=== PATIENT | female | born 2000 | race Caucasian/White ===

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

== ENCOUNTER 2020-10-16 09:29 | Emergency (ER) | payer BC ==
[~2020-10-16] VITALS: Ht 177 cm; Wt 72.7 kg
[2020-10-16] MEDS ORDERED: OXYMETAZOLINE (AFRIN) 0.05% NA 30 ML BTL STA (10:02)
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
[2020-10-16] MEDS ORDERED: cefTRIAXone 1,000 MG in WATER (STERILE) FOR INJECTION 10 ML IV ONE (10:15)
[2020-10-16] MEDS ORDERED: AZITHROMYCIN 250 MG TAB (ZITHROMAX) PO ONE (10:15)
[2020-10-16 10:34] LABS: BILIRUBIN,URINE NEGATIVE (NEGATIVE); CLARITY,URINE CLEAR; COLOR,URINE YELLOW; GLUCOSE, URINE (UA) NEGATIVE (NEGATIVE); KETONES,URINE NEGATIVE (NEGATIVE); LEUKOCYTE ESTERASE ,URINE NEGATIVE (NEGATIVE); NITRITE,URINE NEGATIVE (NEGATIVE); PH,URINE 7.5 (5-9); PROTEIN,URINE NEGATIVE (NEGATIVE)
[2020-10-16 10:34] LABS: BASOPHILS % (AUTO) 0 % (0-10); EOSINOPHILS # (AUTO) 0.1 10^3/uL (0.0-0.3); EOSINOPHILS % (AUTO) 1 % (0-10); HEMATOCRIT 41 % (35-52); HEMOGLOBIN 13.9 g/dL (11.5-16.0); LYMPHOCYTES # (AUTO) 1.8 10^3/uL (1.0-4.0); LYMPHOCYTES % (AUTO) 24 % (12-44); MEAN CORPUSCULAR HEMOGLOBIN 31 pg (25-34); MEAN CORPUSCULAR HGB CONC 34 g/dL (32-36); MEAN CORPUSCULAR VOLUME 90 fL (80-99); MEAN PLATELET VOLUME 9.9 fL (9.0-12.2); MONOCYTES # (AUTO) 0.5 10^3/uL (0.0-1.0); MONOCYTES % (AUTO) 7 % (0-12); NEUTROPHILS # (AUTO) 5.1 10^3/uL (1.8-7.8); NEUTROPHILS % (AUTO) 67 % (42-75); PLATELET COUNT 261 10^3/uL (130-400); WHITE BLOOD COUNT 7.6 10^3/uL (4.3-11.0)
[2020-10-16 10:44] LABS: BACTERIA,URINE NEGATIVE /HPF; SQUAMOUS EPITHELIAL CELL,UR 0-2 /HPF; WBC,URINE RARE /HPF
[2020-10-16 10:46] LABS: ALBUMIN 4.2 GM/DL (3.2-4.5); POTASSIUM 3.7 MMOL/L (3.6-5.0)
[2020-10-16 10:47] LABS: CALCIUM 9.1 MG/DL (8.5-10.1)
[2020-10-16 10:48] LABS: TOTAL PROTEIN 6.5 GM/DL (6.4-8.2)
[2020-10-16 10:50] LABS: BILIRUBIN,TOTAL 1.2 MG/DL (0.1-1.0)
[2020-10-16 10:52] VITALS: BP 120/82
[2020-10-16 10:52] LABS: CREATININE SERUM 0.76 MG/DL (0.60-1.30)
== END 2020-10-16 11:03 | disposition home or self-care (01) ==
LOC: EDUNIT# 09:29 → ER 09:31
DX: R04.0 Epistaxis (principal); Y04.2XXA Assault by strike against or bumped into by another person, initial encounter
CPT/HCPCS: 36415; 80053; 81000; 84703; 85025; 86780; 87491; 87591; 99283

== ENCOUNTER → 2021-06-27 | Outpatient (CLI) | payer BC ==
--- NOTE | 2021-06-27 12:13 | Diagnostic Imaging Report ---
INDICATION: Concern for demise. FINDINGS: There is a single live IUP measuring 7 weeks 2 days gestational age. Heart rate was recorded at 140 BPM. No perigestational sac hemorrhage is detected. Adnexa are unremarkable. IMPRESSION: Single live IUP of 7 weeks 2 days gestational age. Estimated date of confinement sonographically is 02/12/2022. Dictated by: Dictated on workstation # [id number]
== END ==
LOC: RAD 11:30
PROVIDERS: ATTEND Nurse Practitioner Family
DX: O20.9 Hemorrhage in early pregnancy, unspecified (principal); Z3A.01 Less than 8 weeks gestation of pregnancy
CPT/HCPCS: 76801; 76817

== ENCOUNTER → 2021-06-30 | Outpatient (CLI) | payer BC ==
[~2021-06-30] MED LIST: DOXY1TAB3 PO
[2021-06-30 14:56] LABS: BILIRUBIN,URINE NEGATIVE (NEGATIVE); CLARITY,URINE CLEAR; COLOR,URINE YELLOW; GLUCOSE, URINE (UA) NEGATIVE (NEGATIVE); KETONES,URINE NEGATIVE (NEGATIVE); LEUKOCYTE ESTERASE ,URINE 3+ (NEGATIVE); NITRITE,URINE NEGATIVE (NEGATIVE); PH,URINE 7.5 (5-9); PROTEIN,URINE TRACE (NEGATIVE)
[2021-06-30 14:58] LABS: BASOPHILS % (AUTO) 0 % (0-10); EOSINOPHILS # (AUTO) 0.1 10^3/uL (0.0-0.3); EOSINOPHILS % (AUTO) 1 % (0-10); HEMATOCRIT 36 % (35-52); HEMOGLOBIN 12.5 g/dL (11.5-16.0); LYMPHOCYTES # (AUTO) 1.6 10^3/uL (1.0-4.0); LYMPHOCYTES % (AUTO) 23 % (12-44); MEAN CORPUSCULAR HEMOGLOBIN 30 pg (25-34); MEAN CORPUSCULAR HGB CONC 34 g/dL (32-36); MEAN CORPUSCULAR VOLUME 86 fL (80-99); MEAN PLATELET VOLUME 10.6 fL (9.0-12.2); MONOCYTES # (AUTO) 0.4 10^3/uL (0.0-1.0); MONOCYTES % (AUTO) 6 % (0-12); NEUTROPHILS # (AUTO) 4.9 10^3/uL (1.8-7.8); NEUTROPHILS % (AUTO) 69 % (42-75); PLATELET COUNT 188 10^3/uL (130-400)
[2021-06-30 15:27] LABS: BACTERIA,URINE LARGE /HPF; RBC,URINE 0-2 /HPF; RENAL EPITHELIAL CELLS,URINE 0-2 /HPF
[2021-06-30 21:15] LABS: HEPATITIS C ANTIBODY C Non-Reactive (Non-Reactive)
== END ==
LOC: LABNPT 10:00
PROVIDERS: ATTEND Obstetrics & Gynecology
DX: Z36.89 Encounter for other specified antenatal screening (principal)
CPT/HCPCS: 81000; 84702; 85025; 86703; 86762; 86780; 86803; 86850; 86900; 86901; 87088; 87340

== ENCOUNTER 2021-07-01 22:17 | Emergency (ER) | payer BC ==
[~2021-07-01] VITALS: Ht 177.8 cm; Wt 68.2 kg
[2021-07-01] MEDS ORDERED: LACTATED RINGERS 1,000 ML IV ONE (23:00)
[2021-07-01 23:04] LABS: BILIRUBIN,URINE NEGATIVE (NEGATIVE); CLARITY,URINE SL CLOUDY; COLOR,URINE YELLOW; GLUCOSE, URINE (UA) NEGATIVE (NEGATIVE); KETONES,URINE 2+ (NEGATIVE); LEUKOCYTE ESTERASE ,URINE TRACE (NEGATIVE); NITRITE,URINE NEGATIVE (NEGATIVE); PROTEIN,URINE TRACE (NEGATIVE)
[2021-07-01 23:13] LABS: BACTERIA,URINE FEW /HPF; RBC,URINE 0-2 /HPF; SQUAMOUS EPITHELIAL CELL,UR 0-2 /HPF
--- NOTE | 2021-07-01 23:20 | ED GI ---
General Chief Complaint: Abdominal/GI Problems Stated Complaint: VOMITING 7 WKS Nursing Triage Note: Patient reports that she is 7 weeks 6days . Since about 2 days ago she has been unable to "keep any thing down". Source of Information: Patient History of Present Illness Date Seen by Provider: Jul 01, 2021 Time Seen by Provider: 22:55 Initial Comments PT ARRIVES VIA POV FROM HOME PT STATES SHE IS 7 WEEKS, 6 DAYS NOT SURE WHEN HER LMP WAS--THINKS AROUND 05/05/21 PT HAS HAD NAUSEA AND VOMITING FOR THE LAST 2 WEEKS, BUT FOR THE LAST 2 DAYS SHE HAS NOT BEEN ABLE TO KEEP ANYTHING DOWN HAS VOMITED AT LEAST 10 TIMES TODAY LAST BM WAS YESTERDAY STATES SHE ONLY URINATED ONE TIME TODAY BUT NO PAIN OR DISCOMFORT WITH URINATION NO VAGINAL BLEEDING OR DISCHARGE TODAY STATES SHE DID HAVE SOME LIGHT SPOTTING EARLIER IN THE WEEK, BUT NONE FOR THE LAST 3-4 DAYS STATES SHE "HURTS ALL OVER" --AND HAS SOME ABDOMINAL DISCOMFORT AND HER THROAT IS SORE, BUT THINKS IS FROM VOMITING NO FEVER AT ANY TIME HAS BEEN TO [facility] MULTIPLE TIMES THIS WEEK FOR THIS PROBLEM HAS HAD SEVERAL ULTRASOUNDS THIS WEEK--HAD ONE ON SATURDAY THROUGH [facility], AND HAD 2 AT "[facility] IN [place] PT HAS HAD LAB WELL SHE HAD HER INTAKE APPOINTMENT AT DR. CONLEY'S OFFICE ON Saturday06/30/21 PT WAS PRESCRIBED KEFLEX ON 06/26/21 FOR UTI--HAS NOT BEEN TAKING IT PRESCRIBED SHE HAS BEEN TAKING VITAMIN B6 TODAY A PRESCRIPTION FOR REGLAN WAS CALLED IN BY [facility]--SHE TOOK 1 DOSE THIS MORNING BUT HAS NOT TAKEN ANY MORE TODAY PCP: NONE Allergies and Home Medications Allergies Coded Allergies: peanut (Verified Allergy, Unknown, 11/16/18) Patient Home Medication List Home Medication List Reviewed: Yes Doxylamine/Pyridoxine HCl (Anjana Washington 10-10 mg Tablet) 10 Mg-10 Mg Tablet., 2 EACH PO HS Prescribed by: PHIL ZHENG on 07/02/21 0041 Review of Systems Review of Systems Constitutional: no symptoms reported EENTM: See HPI Respiratory: No Symptoms Reported Cardiovascular: No Symptoms Reported Gastrointestinal: See HPI Genitourinary: See HPI Musculoskeletal: see HPI Skin: no symptoms reported Psychiatric/Neurological: No Symptoms Reported Endocrine: No Symptoms Reported Hematologic/Lymphatic: No Symptoms Reported Past Wamgatn-Hlbssq-Wlqyeq Hx Patient Social History Tobacco Use?: No Use of E-Cig and/or Vaping dev: No Substance use?: Yes Substance type: Marijuana Additional substance use comme: NO RECENT MARIJUANA USE Alcohol Use?: Yes (IN THE PAST) Alcohol Frequency: Couple times a week Pt feels they are or have been: No Immunizations Up To Date First/Initial COVID19 Vaccinat: n/a Seasonal Allergies Seasonal Allergies: No Past Medical History Surgery/Hospitalization HX: currently 7 wks and 6 days Surgeries: Yes (CORRECTIVE EYE SURGERY AGE 4) Eye Surgery Respiratory: No Cardiac: No Neurological: No : Yes Last Menstrual Period: May 05, 2021 Reproductive Disorders: Yes (IRREGULAR PERIODS) Genitourinary: No Gastrointestinal: No Musculoskeletal: No Endocrine: No HEENT: Yes (HAD CORRECTIVE EYE SURGERY AGE 4 .) Cancer: No Psychosocial: No Integumentary: No Blood Disorders: No Physical Exam Vital Signs Vital Signs - First Documented Capillary Refill : Less Than 3 Seconds Height/Weight/BMI Height: 5'9.00" Weight: 140lbs. oz. 63.761887ey; 21.00 BMI Method:Stated General Appearance: WD/WN, no apparent distress HEENT: normal ENT inspection Neck: normal inspection Respiratory: normal breath sounds Cardiovascular: regular rate, rhythm, no murmur Gastrointestinal: non tender, soft Extremities: normal inspection, normal capillary refill Neurologic/Psychiatric: no motor/sensory deficits, alert, oriented x 3 Skin: warm/dry, pallor Progress/Results/Core Measures Results/Orders Lab Results Laboratory Tests Test 07/01/21 22:57 07/01/21 23:48 Range/Units Urine Color YELLOW Urine Clarity SL CLOUDY Urine pH 8.0 5-9 Urine Specific [place] 1.015 L 1.016-1.022 Urine Protein TRACE H NEGATIVE Urine Glucose (UA) NEGATIVE NEGATIVE Urine Ketones 2+ H NEGATIVE Urine Nitrite NEGATIVE NEGATIVE Urine Bilirubin NEGATIVE NEGATIVE Urine Urobilinogen 1.0 < = 1.0 MG/DL Urine Leukocyte Esterase TRACE H NEGATIVE Urine RBC (Auto) NEGATIVE NEGATIVE Urine RBC 0-2 /HPF Urine WBC 2-5 /HPF Urine Squamous Epithelial Cells 0-2 /HPF Urine Crystals NONE /LPF Urine Bacteria FEW H /HPF Urine Casts NONE /LPF Urine Mucus SMALL H /LPF Urine Culture Indicated NO Urine Opiates Screen NEGATIVE NEGATIVE Urine Oxycodone Screen NEGATIVE NEGATIVE Urine Methadone Screen NEGATIVE NEGATIVE Urine Propoxyphene Screen NEGATIVE NEGATIVE Urine Barbiturates Screen NEGATIVE NEGATIVE Ur Tricyclic Antidepressants Screen NEGATIVE NEGATIVE Urine Phencyclidine Screen NEGATIVE NEGATIVE Urine Amphetamines Screen NEGATIVE NEGATIVE Urine Methamphetamines Screen NEGATIVE NEGATIVE Urine Benzodiazepines Screen NEGATIVE NEGATIVE Urine Cocaine Screen NEGATIVE NEGATIVE Urine Cannabinoids Screen NEGATIVE NEGATIVE White Blood Count 9.2 4.3-11.0 10^3/uL Red Blood Count 4.37 3.80-5.11 10^6/uL Hemoglobin 12.9 11.5-16.0 g/dL Hematocrit 37 35-52 % Mean Corpuscular Volume 84 80-99 fL Mean Corpuscular Hemoglobin 30 25-34 pg Mean Corpuscular Hemoglobin Concent 35 32-36 g/dL Red Cell Distribution Width 12.1 10.0-14.5 % Platelet Count 233 130-400 10^3/uL Mean Platelet Volume 10.3 9.0-12.2 fL Immature Granulocyte % (Auto) 0 % Neutrophils (%) (Auto) 76 H 42-75 % Lymphocytes (%) (Auto) 18 12-44 % Monocytes (%) (Auto) 5 0-12 % Eosinophils (%) (Auto) 1 0-10 % Basophils (%) (Auto) 0 0-10 % Neutrophils # (Auto) 7.0 1.8-7.8 10^3/uL Lymphocytes # (Auto) 1.7 1.0-4.0 10^3/uL Monocytes # (Auto) 0.4 0.0-1.0 10^3/uL Eosinophils # (Auto) 0.1 0.0-0.3 10^3/uL Basophils # (Auto) 0.0 0.0-0.1 10^3/uL Immature Granulocyte # (Auto) 0.0 0.0-0.1 10^3/uL Sodium Level 138 135-145 MMOL/L Potassium Level 3.9 3.6-5.0 MMOL/L Chloride Level 102 98-107 MMOL/L Carbon Dioxide Level 22 21-32 MMOL/L Anion Gap 14 5-14 MMOL/L Blood Urea Nitrogen 10 7-18 MG/DL Creatinine 0.73 0.60-1.30 MG/DL Estimat Glomerular Filtration Rate 120 BUN/Creatinine Ratio 14 Glucose Level 97 70-105 MG/DL Calcium Level 9.7 8.5-10.1 MG/DL Corrected Calcium 9.4 8.5-10.1 MG/DL Magnesium Level 2.0 1.6-2.4 MG/DL Total Bilirubin 1.6 H 0.1-1.0 MG/DL Aspartate Amino Transf (AST/SGOT) 18 5-34 U/L Alanine Aminotransferase (ALT/SGPT) 26 0-55 U/L Alkaline Phosphatase 57 40-136 U/L Total Protein 7.4 6.4-8.2 GM/DL Albumin 4.4 3.2-4.5 GM/DL Amylase Level 45 25-125 U/L Lipase 27 8-78 U/L My Orders Orders - PHIL ZHENG DO Urine Bedside (07/01/21 22:56) Amylase (07/01/21 22:56) Cbc With Automated Diff (07/01/21 22:56) Comprehensive Metabolic Panel (07/01/21 22:56) Drug Screen Stat (Urine) (07/01/21 22:56) Lipase (07/01/21 22:56) Magnesium (07/01/21 22:56) Ua Culture If Indicated (07/01/21 22:56) Ed Iv/Invasive Line Start (07/01/21 22:56) Lactated Ringers (Lr 1000 Ml Iv Solution (07/01/21 23:00) Hcg,Quantitative (07/01/21 23:01) Abo Rh Type (07/01/21 23:01) Metoclopramide Injection (Reglan Injecti (07/01/21 23:30) Medications Given in ED Current Medications Medications Dose Ordered Sig/Zachary Route Start Time Stop Time Status Last Admin Dose Admin Lactated Ringer's 1,000 ml @ 0 mls/hr Q0M ONCE IV 07/01/21 23:00 07/01/21 23:02 DC 07/01/21 23:43 999 MLS/HR Metoclopramide HCl 10 mg ONCE ONCE IVP 07/01/21 23:30 07/01/21 23:31 DC 07/01/21 23:43 10 MG Vital Signs/I&O 07/01/21 07/01/21 07/02/21 22:53 22:53 00:00 Temp 36.1 36.1 Pulse 73 73 65 Resp 18 18 16 B/P (MAP) 114/71 (85) 114/71 112/69 Pulse Ox 99 99 99 O2 Delivery Room Air Room Air Room Air Blood Pressure Mean: 85 Progress Progress Note : Progress Note PT VOIDED ON ARRIVAL GIVEN IV FLUIDS AND REGLAN WITH IMPROVEMENT IN SYMPTOMS NO VOMITING DURING ER STAY PT FEELS BETTER AND FEELS COMFORTABLE GOING HOME Departure Impression Primary Impression: Nausea and vomiting during prior to 22 weeks gestation Disposition: 01 HOME, SELF-CARE Condition: Improved Departure-Patient Inst. Decision time for Depature: 00:38 Referrals: ROSA MARIA CONLEY,LOCAL PHYSICIAN (PCP) Primary Care Physician Patient Instructions: Nausea and Vomiting of Add. Discharge Instructions: CLEAR LIQUIDS, SIPS AT A TIME--WATER, BROTH, JELLO, GATORADE BRATS DIET--BANANAS, RICE, APPLESAUCE, TOAST, SALTINES TAKE YOUR REGLAN EVERY 6 HOURS NEEDED FOR NAUSEA AND VOMITING TYLENOL NEEDED FOR PAIN CONTINUE KEFLEX/CEPHALEXIN PRESCRIBED FOR UTI WILL START DICLEGIS FOR NAUSEA AND VOMITING--HOLD ADDITIONAL B6 VITAMIN FOLLOW UP WITH DR. CONLEY NEXT WEEK FOR FURTHER CARE, RETURN TO ER IF WORSE All discharge instructions reviewed with patient and/or family. Voiced understanding. Scripts Doxylamine/Pyridoxine HCl (Anjana Washington 10-10 mg Tablet) 10 Mg-10 Mg Tablet. 2 EACH PO HS, #60 TAB Prov: PHIL ZHENG DO 07/02/21 PHIL ZHENG DO Jul 01, 2021 23:20
[2021-07-01 23:27] LABS: AMPHETAMINE SCREEN, URINE NEGATIVE (NEGATIVE); BENZODIAZEPINES SCREEN URINE NEGATIVE (NEGATIVE); CANNABINOID SCREEN, URINE NEGATIVE (NEGATIVE); COCAINE SCREEN URINE NEGATIVE (NEGATIVE); METHAMPHETAMINE SCREEN URINE S NEGATIVE (NEGATIVE); OPIATE SCREEN URINE NEGATIVE (NEGATIVE)
[2021-07-01 23:28] LABS: BARBITURATE SCREEN URINE NEGATIVE (NEGATIVE); METHADONE STAT NEGATIVE (NEGATIVE); OXYCODONE STAT NEGATIVE (NEGATIVE); PROPOXYPHENE STAT NEGATIVE (NEGATIVE); TRICYCLIC ANTIDEPRESSANTS SCRE NEGATIVE (NEGATIVE)
[2021-07-01] MEDS ORDERED: METOCLOPRAMIDE INJ 10 MG/2 ML (REGLAN) IVP ONE (23:30)
[2021-07-01 23:56] LABS: BASOPHILS % (AUTO) 0 % (0-10); EOSINOPHILS # (AUTO) 0.1 10^3/uL (0.0-0.3); EOSINOPHILS % (AUTO) 1 % (0-10); HEMATOCRIT 37 % (35-52); HEMOGLOBIN 12.9 g/dL (11.5-16.0); LYMPHOCYTES # (AUTO) 1.7 10^3/uL (1.0-4.0); LYMPHOCYTES % (AUTO) 18 % (12-44); MEAN CORPUSCULAR HEMOGLOBIN 30 pg (25-34); MEAN CORPUSCULAR HGB CONC 35 g/dL (32-36); MEAN CORPUSCULAR VOLUME 84 fL (80-99); MEAN PLATELET VOLUME 10.3 fL (9.0-12.2); MONOCYTES # (AUTO) 0.4 10^3/uL (0.0-1.0); MONOCYTES % (AUTO) 5 % (0-12); NEUTROPHILS % (AUTO) 76 % (42-75); PLATELET COUNT 233 10^3/uL (130-400); WHITE BLOOD COUNT 9.2 10^3/uL (4.3-11.0)
[2021-07-02 00:19] LABS: ALBUMIN 4.4 GM/DL (3.2-4.5)
[2021-07-02 00:20] LABS: POTASSIUM 3.9 MMOL/L (3.6-5.0)
[2021-07-02 00:21] LABS: CALCIUM 9.7 MG/DL (8.5-10.1)
[2021-07-02 00:22] LABS: TOTAL PROTEIN 7.4 GM/DL (6.4-8.2)
[2021-07-02 00:24] LABS: BILIRUBIN,TOTAL 1.6 MG/DL (0.1-1.0)
[2021-07-02 00:26] LABS: CREATININE SERUM 0.73 MG/DL (0.60-1.30)
[2021-07-02] MEDS ORDERED: DOXY1TAB3 PO (00:41)
[2021-07-02 00:50] VITALS: BP 113/68
== END 2021-07-02 00:50 | disposition home or self-care (01) ==
LOC: EDUNIT# 22:17 → ER 22:20
DX: O21.0 Mild hyperemesis gravidarum (principal); Z3A.01 Less than 8 weeks gestation of pregnancy
CPT/HCPCS: 36415; 80053; 80306; 81000; 82150; 83690; 83735; 84702; 84703; 85025; 86900; 86901

== ENCOUNTER → 2021-09-22 | Outpatient (CLI) | payer BC ==
--- NOTE | 2021-09-22 18:25 | Diagnostic Imaging Report ---
INDICATION: patient, survey TECHNIQUE: Multiple real-time grayscale images were obtained over the gravid uterus. COMPARISON: 06/27/2021 FINDINGS: A single live intrauterine fetus is seen measuring at 20 weeks 6 days in size by composite measurements. This is actually a week larger than expected from original dates. Fetus is in cephalic presentation. Placenta is anterior with no evidence of previa. heart rate is 142 bpm. Gestational sac normal-appearing shape. Cervical length 3.7 cm, the distance from the placental tip to the cervix was 7.1 cm. Maternal adnexa show no free fluid. survey showed normal-appearing kidneys and bladder. Normal-appearing stomach was seen. Normal-appearing intracranial ventricles were seen. Four-chamber heart view appeared normal. Three-vessel cord and cord insertion appear normal. spine was unremarkable in appearance. Biometrical measurements are as follows: Biparietal 4.92 cm, age 21 weeks 0 days. Head circumference 19.12 cm, age 21 weeks 3 days. Abdominal circumference 14.64 cm, age 20 weeks 0 days. Femur length 3.42 cm, age 20 weeks 6 days. Sonographic estimate age: 20 weeks 6 days. Sonographic estimated date of delivery: 02/03/2022. Estimated Weight: 354 gm (+/- 52 gm). LMP percentile: 70%. heart rate: 142 beats per minute. number: 1 of 1. IMPRESSION: Single live intrauterine fetus measuring 20 weeks 6 days in size. There was no detectable abnormality. Dictated by: Dictated on workstation # [id number]
== END ==
LOC: RAD 14:49
PROVIDERS: ATTEND Obstetrics & Gynecology
DX: Z34.02 Encounter for supervision of normal first pregnancy, second trimester (principal); Z3A.20 20 weeks gestation of pregnancy
CPT/HCPCS: 76805

== ENCOUNTER 2022-02-02 12:54 | Outpatient (CLI) | payer BC ==
[~2022-02-02] VITALS: Ht 177.8 cm; Wt 81.9 kg
[2022-02-02 12:47] VITALS: BP 112/64
[2022-02-02 13:25] VITALS: BP 119/69
[2022-02-02 13:40] VITALS: BP 114/67
[2022-02-02] MEDS ORDERED: ACETAMINOPHEN 500 MG TAB (TYLENOL) PO NR (14:00)
[2022-02-02] MEDS ORDERED: CYCLOBENZAPRINE 10 MG (FLEXERIL) TAB PO NR (14:00)
[2022-02-02 14:46] LABS: BILIRUBIN,URINE NEGATIVE (NEGATIVE); CLARITY,URINE CLEAR; COLOR,URINE YELLOW; GLUCOSE, URINE (UA) NEGATIVE (NEGATIVE); KETONES,URINE NEGATIVE (NEGATIVE); LEUKOCYTE ESTERASE ,URINE NEGATIVE (NEGATIVE); NITRITE,URINE NEGATIVE (NEGATIVE); PROTEIN,URINE NEGATIVE (NEGATIVE)
[2022-02-02 14:53] LABS: BACTERIA,URINE NEGATIVE /HPF; SQUAMOUS EPITHELIAL CELL,UR 0-2 /HPF; WBC,URINE 0-2 /HPF
[2022-02-02 16:28] VITALS: BP 112/69
[2022-02-02 16:30] VITALS: BP 112/69
[2022-02-02] MEDS ORDERED: METR-145 PO ×2 (17:00→17:04)
[2022-02-02] MEDS ORDERED: PREN1TAB79 PO (17:00)
[2022-02-02 17:18] VITALS: BP 112/69
--- NOTE | 2022-02-05 08:18 | Physician Query-Final Dx ---
Clinic Account Progress/Dx Physician Query: Please give diagnosis Please include # weeks gestation Date of Service Feb 02, 2022 at 12:54 RADHA,MarFeb 05, 2022 08:18
== END 2022-02-02 17:18 | disposition home or self-care (01) ==
LOC: WSo 12:54 → LDRP 12:54 → WSo 17:18
PROVIDERS: ATTEND Obstetrics & Gynecology
DX: O47.1 False labor at or after 37 completed weeks of gestation (principal); Z3A.39 39 weeks gestation of pregnancy
CPT/HCPCS: 36415; 81000; 87210; 87491; 87591

== ENCOUNTER 2022-02-07 19:15 | Inpatient (IN) | payer BC, MEDICAID ==
[~2022-02-07] VITALS: Ht 176 cm; Wt 82.2 kg
[~2022-02-07 19:15] MED LIST changes: +METR-145 PO; +PREN1TAB79 PO
[2022-02-07 19:30] VITALS: BP 120/65
[2022-02-07] MEDS ORDERED: NS IV 1000 ML 1,000 ML ONE (20:14)
[2022-02-07] MEDS ORDERED: TERBUTALINE INJ 1 MG/ML (BRETHINE) AMP SC PRN (20:15)
[2022-02-07] MEDS ORDERED: NS IV 1000 ML 1,000 ML IV ONE (20:15)
[2022-02-07 20:17] LABS: BASOPHILS % (AUTO) 0 % (0-10); EOSINOPHILS # (AUTO) 0.1 10^3/uL (0.0-0.3); EOSINOPHILS % (AUTO) 1 % (0-10); HEMATOCRIT 33 % (35-52); HEMOGLOBIN 11.3 g/dL (11.5-16.0); LYMPHOCYTES % (AUTO) 14 % (12-44); MEAN CORPUSCULAR HEMOGLOBIN 31 pg (25-34); MEAN CORPUSCULAR HGB CONC 35 g/dL (32-36); MEAN CORPUSCULAR VOLUME 88 fL (80-99); MEAN PLATELET VOLUME 10.7 fL (9.0-12.2); MONOCYTES # (AUTO) 0.8 10^3/uL (0.0-1.0); MONOCYTES % (AUTO) 5 % (0-12); NEUTROPHILS # (AUTO) 11.4 10^3/uL (1.8-7.8); NEUTROPHILS % (AUTO) 79 % (42-75); PLATELET COUNT 165 10^3/uL (130-400); WHITE BLOOD COUNT 14.4 10^3/uL (4.3-11.0)
[2022-02-07 20:35] LABS: LYMPHOCYTES % (MANUAL) 13 %; MONOCYTES % (MANUAL) 5 %; NEUTROPHILS % (MANUAL) 82 %; RBC MORPH NORMAL
[2022-02-07 20:53] LABS: BILIRUBIN,URINE NEGATIVE (NEGATIVE); CLARITY,URINE CLEAR; COLOR,URINE ORANGE; GLUCOSE, URINE (UA) NEGATIVE (NEGATIVE); KETONES,URINE NEGATIVE (NEGATIVE); LEUKOCYTE ESTERASE ,URINE NEGATIVE (NEGATIVE); NITRITE,URINE NEGATIVE (NEGATIVE); PROTEIN,URINE NEGATIVE (NEGATIVE)
[2022-02-07 20:59] LABS: BACTERIA,URINE TRACE /HPF; CALCIUM OXALATE CRYSTALS,UR LARGE /LPF; WBC,URINE RARE /HPF
[2022-02-07] MEDS: D5 LR IV SOLUTION 1,000 ML IV SCH (21:21)
[2022-02-07] MEDS: CATHETER FLUSH 10 ML SYR IV SCH (22:00)
[2022-02-08] VITALS (36 sets, daily range): BP systolic 100–147; BP diastolic 48–79
[2022-02-08] MEDS: D5 LR IV SOLUTION 1,000 ML IV SCH (05:01)
[2022-02-08] MEDS: CATHETER FLUSH 10 ML SYR IV SCH ×3 (05:12→22:00)
[2022-02-08] MEDS ORDERED: LIDOCAINE 1% INJ 20 ML VIAL IJ PRN (08:00)
[2022-02-08] MEDS ORDERED: fentaNYL 2 mcg/ml BUPIVA 0.125 100 ML ONE (08:14)
--- NOTE | 2022-02-08 08:42 | History & Physical-OB ---
OB - Chief Complaint & HPI Date/Time Date of Admission: Date of Admission: Feb 07, 2022 at 19:15 Date seen by a Provider: Feb 08, 2022 Time Seen by a Provider: 08:10 Chief Complaint/History OB-Reason for Admission/Chief: Induction of Labor Hx : 1 Hx Para: 0 Expected Date of Delivery: Feb 09, 2022 Gestational Age in Weeks: 39 Gestational Age in Days: 5 Indication for induction: maternal discomfort Admission Nurse Assessment Rev: Yes History of Labs GBS neg CF carrier, FOB neg B+ Antibody neg RI RPR NR HBsAg NR HIV NR Allergies and Home Medications Allergies Coded Allergies: peanut (Verified Allergy, Unknown, 11/16/18) Patient Home Medication List Home Medication List Reviewed: Yes Doxylamine/Pyridoxine HCl (Anjana Dr 10-10 mg Tablet) 10 Mg-10 Mg Tablet.dr, 2 EACH PO HS Prescribed by: PHIL ZHENG on 07/02/21 0041 Metronidazole (Metronidazole) 500 Mg Tablet, 500 MG PO BID Prescribed by: MAXIM RAMIREZ on 02/02/22 1704 Vit W-Ca,Fe,FA(<1 mg) ( Vitamins) 27 Mg Iron-800 Mcg Tablet, 1 EACH PO DAILY, (Reported) Entered as Reported by: MAXIM RAMIREZ on 02/02/22 1700 OB - History Hx of Present Care: Yes Ultrasounds: Normal mid trimester US Obstetrical Complications: None Medical Complications: None Patient Past Medical History na Social History/Family History 2nd Hand Smoke Exposure: No Immunizations Influenza Vaccine Up-to-Date: Yes; Up-to-Date First/Initial COVID19 Vaccine: n/a OB - Admission Exam Physical Exam Vitals: Vital Signs 02/08/22 03:23 Temp 36.2 Pulse 74 Resp 20 B/P (MAP) 108/57 (74) Pulse Ox 100 O2 Delivery Room Air HEENT: NCAT Heart: Rhythm Normal Lungs: Clear Abdomen: Gravid Extremities: Normal Reflexes: Normal Cervical Dilatation: 2cm Effacement: 75% Station: -1 Membranes: Intact Heart Rate: 130's Accelerations: Accelerations Present Decelerations: No Decelerations Short Term Variability: Present Skilled Nursing Variability: Average (6-25) Contractions on Admission: 6-10 Minutes Apart Intensity: Mild Silva Scoring Tool (Modified) Dilation (cm): 1-2cm (1) Effacement (%): 51-79% (2) Descent/Station: -1,0 (2) Cervix Consistency: Soft (2) Cervix Position: Anterior (2) Subtract 1 point for: Nulliparity (-1) Silva Score: 8 Labs Laboratory Tests Test 02/07/22 19:15 02/07/22 20:00 Range/Units Urine Color ORANGE Urine Clarity CLEAR Urine pH 6.0 5-9 Urine Specific Whick 1.020 1.016-1.022 Urine Protein NEGATIVE NEGATIVE Urine Glucose (UA) NEGATIVE NEGATIVE Urine Ketones NEGATIVE NEGATIVE Urine Nitrite NEGATIVE NEGATIVE Urine Bilirubin NEGATIVE NEGATIVE Urine Urobilinogen 0.2 < = 1.0 MG/DL Urine Leukocyte Esterase NEGATIVE NEGATIVE Urine RBC (Auto) NEGATIVE NEGATIVE Urine RBC NONE /HPF Urine WBC RARE /HPF Urine Squamous Epithelial Cells NONE /HPF Urine Renal Epithelial Cells NONE /HPF Urine Crystals PRESENT H /LPF Urine Calcium Oxalate Crystals LARGE H /LPF Urine Bacteria TRACE /HPF Urine Casts NONE /LPF Urine Mucus NEGATIVE /LPF Urine Culture Indicated NO White Blood Count 14.4 H 4.3-11.0 10^3/uL Red Blood Count 3.68 L 3.80-5.11 10^6/uL Hemoglobin 11.3 L 11.5-16.0 g/dL Hematocrit 33 L 35-52 % Mean Corpuscular Volume 88 80-99 fL Mean Corpuscular Hemoglobin 31 25-34 pg Mean Corpuscular Hemoglobin Concent 35 32-36 g/dL Red Cell Distribution Width 14.1 10.0-14.5 % Platelet Count 165 130-400 10^3/uL Mean Platelet Volume 10.7 9.0-12.2 fL Immature Granulocyte % (Auto) 1 % Neutrophils (%) (Auto) 79 H 42-75 % Lymphocytes (%) (Auto) 14 12-44 % Monocytes (%) (Auto) 5 0-12 % Eosinophils (%) (Auto) 1 0-10 % Basophils (%) (Auto) 0 0-10 % Neutrophils # (Auto) 11.4 H 1.8-7.8 10^3/uL Lymphocytes # (Auto) 2.0 1.0-4.0 10^3/uL Monocytes # (Auto) 0.8 0.0-1.0 10^3/uL Eosinophils # (Auto) 0.1 0.0-0.3 10^3/uL Basophils # (Auto) 0.0 0.0-0.1 10^3/uL Immature Granulocyte # (Auto) 0.2 H 0.0-0.1 10^3/uL Neutrophils % (Manual) 82 % Lymphocytes % (Manual) 13 % Monocytes % (Manual) 5 % Blood Morphology Comment NORMAL OB - Assessment/Plan/Diagnosis Assessment Assessment: induction of labor Admission Dx 22 yo @ 39.6 weeks IOL GBS neg Admission Status: Inpatient Order (span 2 midnights) Reason for Inpatient Admission: IOL at 39.6 weeks Plan Plan: Induction Induction Method: per Misoprostol Protocol ROSA MARIA CONLEY DO Feb 08, 2022 08:42
[2022-02-08] MEDS ORDERED: fentaNYL INJ 100 MCG/2 ML AMP ONE (08:59)
[2022-02-08] MEDS ORDERED: BUPIVACAINE 0.25% 30 ML (SENSORCAINE) VIAL ONE (08:59)
[2022-02-08] MEDS ORDERED: ONDANSETRON 4 MG/2 ML (SDV) Z0FRAN IV PRN (09:30)
[2022-02-08] MEDS ORDERED: fentaNYL 2 mcg/ml BUPIVA 0.125 100 ML EPI SCH (09:30)
[2022-02-08] MEDS ORDERED: NALOXONE 0.4 MG/ML 1 ML (NARCAN) VIAL IV PRN ×2 (09:30→13:30)
[2022-02-08] MEDS ORDERED: fentaNYL INJ 100 MCG/2 ML AMP INJ ONE (09:30)
[2022-02-08] MEDS ORDERED: LACTATED RINGERS 1,000 ML IV ONE ×2 (09:30)
[2022-02-08] MEDS ORDERED: OXYTOCIN PRE-MIX DRIP 500 ML IV SCH (10:30)
[2022-02-08] MEDS ORDERED: DIBUCAINE 1% OINTMENT 30 GM TUBE TOP PRN (13:30)
[2022-02-08] MEDS ORDERED: WITCH HAZEL(TUCKS) 40 EA JAR TOP PRN (13:30)
[2022-02-08] MEDS ORDERED: MEASLES,MUMPS,RUBELLA 1 EA INJ SQ ONE (13:30)
[2022-02-08] MEDS ORDERED: BENZOCAINE/MENTHOL (DERMOPLAST) 56 ML CAN TP PRN (13:30)
[2022-02-08] MEDS ORDERED: TETANUS,DIPTH,PERTUSS P/F (BOOSTRIX) 0.5 ML VIAL IM ONE (13:30)
--- NOTE | 2022-02-08 13:34 | OB Labor & Delivery Record ---
L&D History Date of Service Date of Service: Feb 08, 2022 History Expected Date of Delivery: Feb 09, 2022 Gestational Age in Weeks: 39 Hx : 1 Hx Para: 0 Complications Events: Routine care Operative Indications (Cesarea: N/A-Vaginal Delivery Intrapartal Events: None L&D Stage1 Stage One Onset of Labor - Date: Feb 08, 2022 Monitors and Tracing Monitor Mode: External Heart Rate: 130 Monitor Accelerations: Uniform Monitor Decelerations: Variable Station: 0 Retirement Variability: Average (6-10) Short Term Variability: Present Presentation: Vertex Vital Signs VS - Last 72 Hours, by Label 02/07/22 02/08/22 02/08/22 02/08/22 19:30 00:38 03:23 09:06 Temp 36.4 36.4 36.2 Pulse 93 74 74 93 Resp 18 18 20 18 B/P (MAP) 117/74 (88) 108/57 (74) 134/79 (97) Pulse Ox 100 98 100 99 O2 Delivery Room Air Room Air Room Air Room Air 02/08/22 02/08/22 02/08/22 02/08/22 09:09 09:12 09:15 09:18 Pulse 82 90 86 89 Resp 18 18 18 18 B/P (MAP) 138/78 (98) 128/73 (91) 125/65 (85) 118/66 (83) Pulse Ox 99 99 99 99 O2 Delivery Room Air Room Air Room Air Room Air 02/08/22 02/08/22 02/08/22 02/08/22 09:21 09:23 09:26 09:32 Temp 36.7 Pulse 85 84 89 81 Resp 18 18 18 18 B/P (MAP) 113/64 (80) 116/66 (83) 118/67 (84) 111/67 (82) Pulse Ox 99 97 97 97 O2 Delivery Room Air Room Air Room Air Room Air 02/08/22 02/08/22 02/08/22 02/08/22 09:37 09:42 09:52 09:58 Pulse 83 78 80 82 Resp 18 18 18 18 B/P (MAP) 113/66 (82) 118/68 (85) 112/65 (81) 134/62 (86) Pulse Ox 97 97 97 97 O2 Delivery Room Air Room Air Room Air Room Air 02/08/22 02/08/22 02/08/22 02/08/22 10:05 10:08 10:12 10:30 Pulse 83 81 77 81 Resp 18 18 18 18 B/P (MAP) 113/60 (77) 108/64 (79) 110/64 (79) 106/61 (76) Pulse Ox 97 98 99 98 O2 Delivery Room Air Room Air Room Air Room Air 02/08/22 02/08/22 02/08/22 02/08/22 10:45 11:00 11:15 11:30 Pulse 80 79 76 79 Resp 18 18 B/P (MAP) 115/67 (83) 107/62 (77) 108/65 (79) 103/65 (78) Pulse Ox 99 99 99 98 O2 Delivery Room Air Room Air Room Air Room Air 02/08/22 02/08/22 02/08/22 02/08/22 11:45 12:00 12:15 12:30 Temp 36.7 Pulse 76 82 78 86 B/P (MAP) 107/62 (77) 102/60 (74) 113/64 (80) 119/61 (80) Pulse Ox 99 100 99 99 O2 Delivery Room Air Room Air Room Air Room Air Rupture of Membranes Spontaneous Ruture of Membrane: No Amniotic Membrane Rupture Time: 08 Amniotic Membrane Fluid Desc.: Meconium Stained Vaginal Bleeding Description: Normal Show Induction/Anesthesia Epidural Cath Placement - Time: 908 Progress/Notes Patient admitted last night for IOL. Misoprostol given overnight, AROM this AM. Epidural placed and low dose pitocin augmenation administer. She progressed to complete and 0 station. L&D Stage2 Stage Two Stage II Date: Feb 08, 2022 Monitors and Tracing Monitor Mode: External Heart Rate: 130 Monitor Accelerations: Uniform Monitor Decelerations: Variable Online Merchandiser Variability: Average (6-10) Short Term Variability: Present Position: Right Occiput Anterior Presentation: Vertex Cord Descript/Complications Cord Vessel Description: 3 Vessels Complications tight nuchal cord delivered through Delivery Type Infant Delivery Method: Spontaneous Vaginal Anterior Shoulder: Left Episiotomy/Perineal Laceration Laceraction(s)/Extensions: Yes Episiotomy Description: Perineal Extension/lac, 2nd degree Degree (describe repair) laceration repaired using 3-0 rapide and 2-0 vicryl suture in usual fashion. Condition of Delivery 1 minute Comment: 9 5 minute Comment: 9 Notes Live male infant weight 8lbs 12 oz Condition of Infant Condition of Infant: Living Exam: No Observed Abnormalities Resuscitation Resuscitation: N/A - Spontaneous Resp L&D Stage3 Stage Three Stage III Date: Feb 08, 2022 Pictocin Pitocin Administration mu/min: 4 Pitocin ml/hr: 4 Pitocin Administration Comment: 30 mu wide open after delivery of placenta Placenta Delivery Placenta Delivery: Spontaneous Delivery Summary Summary Estimated blood loss (mL): 400 Attending at delivery: Rosa Maria Conley DO Condition of Delivery Examined: Cervix Examined, Uterus Explored Post Hemorrhage: No Condition of Mother stable Condition of (s) stable ROSA MARIA CONLEY DO Feb 08, 2022 13:34
[2022-02-08] MEDS: OXYTOCIN PRE-MIX DRIP 500 ML IV SCH ×2 (13:52→16:04)
[2022-02-08] MEDS ORDERED: CATHETER FLUSH 10 ML SYR IV SCH (14:00)
[2022-02-08] MEDS: IBUPROFEN 600 MG (MOTRIN) TAB PO SCH ×2 (15:32→21:16)
[2022-02-08] MEDS: DOCUSATE SODIUM 100 MG (COLACE) CAP PO SCH (21:16)
[2022-02-09] VITALS: BP 108/56
[2022-02-09] MEDS: HYDROcodone/APAP 5 MG/325 MG (LORTAB) TAB PO PRN ×2 (01:17→23:50)
[2022-02-09 04:49] VITALS: BP 100/53
[2022-02-09] MEDS: IBUPROFEN 600 MG (MOTRIN) TAB PO SCH ×4 (04:49→23:50)
[2022-02-09] MEDS: ACETAMINOPHEN 500 MG TAB (TYLENOL) PO PRN ×2 (05:03→14:27)
[2022-02-09] MEDS ORDERED: PRENATAL VITAMIN 1 EA TAB PO SCH (07:00)
[2022-02-09 07:14] LABS: BASOPHILS % (AUTO) 0 % (0-10); EOSINOPHILS % (AUTO) 0 % (0-10); HEMATOCRIT 28 % (35-52); HEMOGLOBIN 9.5 g/dL (11.5-16.0); LYMPHOCYTES # (AUTO) 1.6 10^3/uL (1.0-4.0); LYMPHOCYTES % (AUTO) 12 % (12-44); MEAN CORPUSCULAR HEMOGLOBIN 30 pg (25-34); MEAN CORPUSCULAR HGB CONC 34 g/dL (32-36); MEAN CORPUSCULAR VOLUME 89 fL (80-99); MEAN PLATELET VOLUME 10.8 fL (9.0-12.2); MONOCYTES # (AUTO) 0.8 10^3/uL (0.0-1.0); MONOCYTES % (AUTO) 6 % (0-12); NEUTROPHILS # (AUTO) 11.4 10^3/uL (1.8-7.8); NEUTROPHILS % (AUTO) 82 % (42-75); PLATELET COUNT 137 10^3/uL (130-400)
[2022-02-09] MEDS ORDERED: FERROUS SULF 325 MG (IRON) TAB PO SCH (09:00)
[2022-02-09 09:47] VITALS: BP 109/55
[2022-02-09] MEDS: DOCUSATE SODIUM 100 MG (COLACE) CAP PO SCH ×2 (09:48→23:50)
--- NOTE | 2022-02-09 10:13 | Postpartum Progress Note ---
Note Note Day # 1 Subjective: Patient is without complaints. Ambulating, voiding. Tolerating a regular diet without nausea or vomiting. Normal lochia. Pain is well controlled with oral pain medications. Physical Exam: General - Alert and oriented, no apparent distress Abdomen - Soft, appropriately tender to palpation, non-distended, fundus firm at umbilicus Extremities - no edema, negative José's bilaterally Assessment: Post- day # 1, status post vaginal delivery. Recovering well, hemodynamically stable Acute blood loss anemia Plan: Routine care. Encourage breast feeding. Encourage ambulation. Ferrous sulfate supplementation. Plan for discharge today Vitals - Labs Vital Signs - I&O Vital Signs Date Time Temp Pulse Resp B/P (MAP) Pulse Ox O2 Delivery O2 Flow Rate FiO2 02/09/22 09:47 36.7 78 18 109/55 (73) 98 Room Air 02/09/22 04:49 36.8 78 18 100/53 (69) 97 Room Air 02/09/22 00:00 37.3 76 18 108/56 (73) 97 Room Air 02/08/22 20:00 37.2 88 18 116/60 (78) 97 Room Air 02/08/22 15:25 36.5 90 123/72 (89) 02/08/22 14:45 82 120/64 (82) 02/08/22 14:00 83 116/59 (78) 02/08/22 13:45 36.7 101 147/48 (81) Room Air 02/08/22 13:30 96 100/62 (75) Room Air 02/08/22 13:15 98 102/63 (76) Room Air 02/08/22 13:00 94 122/59 (80) Room Air 02/08/22 12:45 79 116/67 (83) 100 Room Air 02/08/22 12:30 86 119/61 (80) 99 Room Air 02/08/22 12:15 78 113/64 (80) 99 Room Air 02/08/22 12:00 82 102/60 (74) 100 Room Air 02/08/22 11:45 36.7 76 107/62 (77) 99 Room Air 02/08/22 11:30 79 103/65 (78) 98 Room Air 02/08/22 11:15 76 108/65 (79) 99 Room Air 02/08/22 11:00 79 18 107/62 (77) 99 Room Air 02/08/22 10:45 80 18 115/67 (83) 99 Room Air 02/08/22 10:30 81 18 106/61 (76) 98 Room Air I & O 02/09/22 07:00 Intake Total 3000 ml Balance 3000 ml Labs Laboratory Tests 02/09/22 07:05: White Blood Count 14.0H, Red Blood Count 3.13L, Hemoglobin 9.5L, Hematocrit 28L, Mean Corpuscular Volume 89, Mean Corpuscular Hemoglobin 30, Mean Corpuscular Hemoglobin Concent 34, Red Cell Distribution Width 14.3, Platelet Count 137, Mean Platelet Volume 10.8, Immature Granulocyte % (Auto) 1, Neutrophils (%) (Auto) 82H, Lymphocytes (%) (Auto) 12, Monocytes (%) (Auto) 6, Eosinophils (%) (Auto) 0, Basophils (%) (Auto) 0, Neutrophils # (Auto) 11.4H, Lymphocytes # (Auto) 1.6, Monocytes # (Auto) 0.8, Eosinophils # (Auto) 0.0, Basophils # (Auto) 0.0, Immature Granulocyte # (Auto) 0.1 OLIVERIO DUEÑAS APRN Feb 09, 2022 10:13
[2022-02-09] MEDS ORDERED: DIBU30OI TOP (10:19)
[2022-02-09] MEDS ORDERED: WTCHGPD TOP (10:19)
[2022-02-09] MEDS ORDERED: IBUP-844 PO (10:19)
[2022-02-09] MEDS ORDERED: ACHD5005 PO (10:19)
[2022-02-09] MEDS ORDERED: FERR325T24 PO (10:19)
[2022-02-09] MEDS ORDERED: DOCU100C37 PO (10:19)
[2022-02-09] MEDS ORDERED: BENZ78AE5 TP (10:19)
--- NOTE | 2022-02-09 10:20 | Discharge Inst-Women's Service ---
Discharge Inst-Women's Serv Depart Medication/Instructions New, Converted or Re-Newed RX: Transmitted to Pharmacy Consults/Follow Up Additional Follow Up: Yes (6wk appt) Activity Activity: Activity as Tolerated Driving Instructions: No Driving for 1 Week NO SMOKING: NO SMOKING Nothing Inside Vagina: No Douching, No Home Gardens, No Tampons Diet Discharge Diet: No Restrictions Symptoms to Report to : Pain Increased, Fever Over 101 Degrees F, Vaginal Bleeding Increase For Any Problems or Questions: Contact Your Physician OLIVERIO DUEÑAS APRN Feb 09, 2022 10:20
[2022-02-09 12:04] VITALS: BP 117/55
[2022-02-09 18:10] VITALS: BP 110/62
[2022-02-09 23:55] VITALS: BP 110/62
== END 2022-02-09 23:55 | disposition home or self-care (01) | DRG 806 ==
LOC: LDRP 19:15
PROVIDERS: ADMIT Obstetrics & Gynecology; ATTEND Obstetrics & Gynecology
PROC: 10E0XZZ Delivery of Products of Conception, External Approach (ICD-10-PCS; principal; 2022-02-08)
PROC: 0KQM0ZZ Repair Perineum Muscle, Open Approach (ICD-10-PCS; 2022-02-08)
PROC: 10907ZC Drainage of Amniotic Fluid, Therapeutic from Products of Conception, Via Natural or Artificial Opening (ICD-10-PCS; 2022-02-08)
DX: O69.81X0 Labor and delivery complicated by cord around neck, without compression, not applicable or unspecified (principal); D62 Acute posthemorrhagic anemia; Z37.0 Single live birth; Z3A.39 39 weeks gestation of pregnancy; O70.1 Second degree perineal laceration during delivery; O90.81 Anemia of the puerperium
CPT/HCPCS: 36415; 81000; 85007; 85025; 85027; 86780; 86850; 86900; 86901

== ENCOUNTER → 2022-08-30 | Outpatient (CLI) | payer BC, MEDICAID ==
[~2022-08-30] MED LIST changes: +ACHD5005 PO; +BENZ78AE5 TP; +DIBU30OI TOP; +DOCU100C37 PO; +FERR325T24 PO; +GADOTERATE 0.5 MMOL/ML (CLARISCAN) 15 ML VIAL IV ONE; +IBUP-844 PO; +WTCHGPD TOP
--- NOTE | 2022-08-30 18:03 | Diagnostic Imaging Report ---
CLINICAL INDICATION: Patient has heteronymous bilateral filled defect. ICD-10 code H53.47. Patient has dark spots and peripheral vision. EXAM: MRI of the brain/orbits performed without and with 12 mL of Clariscan IV contrast. Multiplanar, multisequence imaging is obtained. COMPARISON: None. FINDINGS: There is no evidence of acute cerebral infarct, intracranial hemorrhage, or gross mass effect. There is no abnormal IV contrast enhancement. Orbits and globes are unremarkable. There is no intraorbital soft tissue abnormality. The optic nerves, optic tract, and optic chiasm are unremarkable. There is no encroaching mass seen in the region of the optic nerves. The brain parenchymal volume appears appropriate for patient's age. There is normal sanchez-white matter distinction. There is no significant midline shift or herniation. The visualized portions of the [place] vascular structures are unremarkable. The pituitary gland, sella, and suprasellar regions are unremarkable as visualized. There is no evidence of hydrocephalus. The basal cisterns are unremarkable. The skull, extracranial soft tissue, and orbits are unremarkable. The paranasal sinuses are unremarkable. Temporal bones show no significant abnormality. IMPRESSION: Unremarkable MRI of the brain and orbit. Dictated by: Dictated on workstation # [id number]
== END ==
LOC: RAD 13:18
PROVIDERS: ATTEND Optometrist
DX: H53.47 Heteronymous bilateral field defects (principal)
CPT/HCPCS: 70553

== ENCOUNTER 2022-10-07 19:30 | Emergency (ER) | payer BC, MEDICAID ==
[~2022-10-07] VITALS: Ht 177.8 cm; Wt 65.8 kg
[~2022-10-07 19:30] MED LIST changes: -GADOTERATE 0.5 MMOL/ML (CLARISCAN) 15 ML VIAL IV ONE
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
[2022-10-07] MEDS ORDERED: KETOROLAC 30 MG/ML VIAL IJ STA (20:16)
[2022-10-07 20:36] VITALS: BP 124/83
== END 2022-10-07 20:36 | disposition home or self-care (01) ==
LOC: EDUNIT# 19:30 → ER 19:33
DX: S06.0X0A Concussion without loss of consciousness, initial encounter (principal); S13.9XXA Sprain of joints and ligaments of unspecified parts of neck, initial encounter; Z28.310 Unvaccinated for COVID-19; V89.2XXA Person injured in unspecified motor-vehicle accident, traffic, initial encounter; Y92.410 Unspecified street and highway as the place of occurrence of the external cause
CPT/HCPCS: 99284

== ENCOUNTER 2022-10-24 20:36 | Emergency (ER) | payer BC, MEDICAID ==
[~2022-10-24] VITALS: Ht 177.8 cm; Wt 65.8 kg
--- NOTE | 2022-10-24 20:50 | ED Integumentary General ---
General Stated Complaint: PT BREAST FEEDING, SWOLLEN LEFT BREAST Source: patient Exam Limitations: no limitations History of Present Illness Date Seen by Provider: Oct 24, 2022 Time Seen by Provider: 20:42 Initial Comments 22-year-old female presents the ER with complaint of left breast tenderness and swelling starting yesterday. She states she has had clogged ducts before, but has not had mastitis before. She denies fevers. States she has still been breast-feeding. Allergies and Home Medications Allergies Coded Allergies: peanut (Verified Allergy, Unknown, 11/16/18) Patient Home Medication List Home Medication List Reviewed: Yes Amoxicillin/Potassium Clav (Amox Tr-K Clv 875-125 mg Tab) 875 Mg-125 Mg Tablet, 1 EACH PO BID Prescribed by: Lisy Yoon on 10/24/222052 Benzocaine/Menthol (Dermoplast Pain Relieving [place]) 20 %-0.5 % Aerosol, 1 EA TP UD PRN for PAIN- SEE INSTRUCTIONS Prescribed by: OLIVERIO DUEÑAS on 02/09/22 1019 Dibucaine (Dibucaine) 1 % Oint, 1 APPLIC TOP UD PRN for PAIN- SEE INSTRUCTIONS Prescribed by: OLIVERIO DUEÑAS on 02/09/22 1019 Docusate Sodium (Docusate Sodium) 100 Mg Capsule, 100 MG PO BID Prescribed by: OLIVERIO DUEÑAS on 02/09/22 1019 Ferrous Sulfate (Ferosul) 325 Mg (65 Mg Iron) Tablet, 325 MG PO DAILY Prescribed by: OLIVERIO DUEÑAS on 02/09/22 1019 Hydrocodone Bit/Acetaminophen (HYDROcodone/APAP 5 MG/325 MG TAB) 1 Tab Tab, 1 EA PO Q4H PRN for PAIN-MODERATE (5-7) Prescribed by: OLIVERIO DUEÑAS on 02/09/22 1020 Ibuprofen (Ibu) 600 Mg Tablet, 600 MG PO Q6H Prescribed by: OLIVERIO DUEÑAS on 02/09/22 1019 Vit W-Ca,Fe,FA(<1 mg) ( Vitamins) 27 Mg Iron-800 Mcg Tablet, 1 EACH PO DAILY, (Reported) Entered as Reported by: MAXIM RAMIREZ on 02/02/22 1700 Witch Kati/Glycerin (A.e.r Pads) 12.5 %-50 % Pad, 1-2 EA TOP UD PRN for PAIN- SEE INSTRUCTIONS Prescribed by: OLIVERIO DUEÑAS on 02/09/22 1019 Review of Systems Review of Systems Constitutional: see HPI Past Cgnbrxr-Lkujuj-Poqqoz Hx Immunizations Up To Date First/Initial COVID19 Vaccinat: DENIES Seasonal Allergies Seasonal Allergies: No Past Medical History Surgery/Hospitalization HX: DENIES Surgeries: Yes (CORRECTIVE EYE 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 4) Eye Surgery Respiratory: No Cardiac: No Neurological: No Reproductive Disorders: Yes (IRREGULAR PERIODS) Genitourinary: No Gastrointestinal: No Musculoskeletal: No Endocrine: No HEENT: Yes (HAD CORRECTIVE EYE SURGERY AGE 4 .) Cancer: No Psychosocial: No Integumentary: No Blood Disorders: No Physical Exam Vital Signs Vital Signs - First Documented 10/24/22 20:41 Temp 37.2 Capillary Refill : General Appearance: WD/WN, no apparent distress Neck: supple, normal inspection Cardiovascular: regular rate, rhythm Respiratory: lungs clear, normal breath sounds, no respiratory distress, no accessory muscle use Extremities: normal range of motion, normal inspection Neurologic/Psychiatric: alert, normal mood/affect Skin: normal color, warm/dry Skin Problem Location: torso (Left breast) Skin Problem Character: other (Swelling, firmness, mild redness of nipple no obvious abscess, no area of fluctuation noted) Progress/Results/Core Measures Results/Orders My Orders Orders - LISY JMAES APRN Amoxicillin/Clavulanate Tablet (Amoxicil (10/24/22 21:00) Vital Signs/I&O 10/24/22 20:41 Temp 37.2 B/P (MAP) Progress Progress Note : Progress Note Patient seen and evaluated, resting comfortably in bed, no acute distress. Based on exam and symptoms, this is likely mastitis. Will discharge with prescription for antibiotic. Patient instructed to continue breast-feeding. Discharge instructions and return precautions provided. Departure Impression Primary Impression: Mastitis Disposition: 01 HOME, SELF-CARE Condition: Stable Departure-Patient Inst. Decision time for Depature: 20:52 Referrals: NO,LOCAL PHYSICIAN (PCP/Family) Primary Care Physician Patient Instructions: Mastitis Add. Discharge Instructions: Complete full course of antibiotic as directed. Follow-up with primary care provider. Return for worsening pain, worsening swelling, fever, or any other new, concerning, or worsening symptoms. Scripts Amoxicillin/Potassium Clav (Amox Tr-K Clv 875-125 mg Tab) 875 Mg-125 Mg Tablet 1 EACH PO BID for 14 Days, #27 TAB 0 Refills Prov: LISY JAMES APRN 10/24/22 LISY JAMES APRN Oct 24, 2022 20:50
[2022-10-24] MEDS ORDERED: AMOX1TAB12 PO (20:53)
[2022-10-24] MEDS ORDERED: AMOXICILLIN/Clavulanate 875 MG TABLET PO ONE (21:00)
== END 2022-10-24 21:00 | disposition home or self-care (01) ==
LOC: EDUNIT# 20:36 → ER 20:38
DX: N61.0 Mastitis without abscess (principal); Z28.310 Unvaccinated for COVID-19
CPT/HCPCS: 99283

== ENCOUNTER 2022-10-31 22:41 | Emergency (ER) | payer BC, MEDICAID ==
[~2022-10-31 22:41] MED LIST changes: +AMOX1TAB12 PO
[2022-11-01 00:56] VITALS: BP 110/72
[2022-11-01 02:07] LABS: BILIRUBIN,URINE NEGATIVE (NEGATIVE); CLARITY,URINE CLEAR; COLOR,URINE YELLOW; GLUCOSE, URINE (UA) NEGATIVE (NEGATIVE); KETONES,URINE NEGATIVE (NEGATIVE); LEUKOCYTE ESTERASE ,URINE NEGATIVE (NEGATIVE); NITRITE,URINE NEGATIVE (NEGATIVE); PH,URINE 5.5 (5-9); PROTEIN,URINE TRACE (NEGATIVE)
[2022-11-01 02:08] LABS: BACTERIA,URINE TRACE /HPF; RBC,URINE 0-2 /HPF; SQUAMOUS EPITHELIAL CELL,UR 0-2 /HPF
== END 2022-11-01 00:56 | disposition home or self-care (01) ==
LOC: EDUNIT# 22:41 → ER 22:44
DX: R21 Rash and other nonspecific skin eruption (principal); R22.9 Localized swelling, mass and lump, unspecified
CPT/HCPCS: 81000; 99283